=== PATIENT | male | born 1980 ===

== ENCOUNTER 2022-01-01 12:55 | Day surgery (SDC) | payer BC ==
[2022-01-01] MEDS ORDERED: NEXIUM 20MG20 MG PO (13:16)
--- NOTE | 2022-01-01 13:20 | NUR ---
Patient to room 350, direct admit from home. Patient ambulated independently with . A&Ox4. VSS. Reports pain 1/10 "tolerable" in abdomen. Nurse oriented the patient to location, room and call light. Patient in bed, call light within reach
[2022-01-01 13:25] VITALS: BP 147/82; PULSE 102; TEMP 99.4
[2022-01-01] MEDS ORDERED: FLOMAX 0.40.4 MG/CAP PO (14:05)
[2022-01-01] MEDS ORDERED: PYRIDIUM 100MG100 MG PO (14:06)
[2022-01-01] MEDS ORDERED: NORCO 325 MG-51 TAB PO (14:06)
[2022-01-01 15:45] VITALS: BP 124/80; PULSE 85; TEMP 97.9
--- NOTE | 2022-01-01 15:45 | NUR ---
Patient to room 322 from the PACU. already in the room. A&Ox4. VSS. IV CDI, fluids by gravity. Denies pain and discomfort. Post op VS monitored. Call light within reach.
[2022-01-01 15:59] VITALS: BP 129/88; PULSE 79
--- NOTE | 2022-01-01 17:26 | NUR ---
Discharge paperwork reviewed with the patient. Patient verbalized an understanding to follow doctors orders. IV removed, tip intact. Patient ambulated independently to the ED entrance to awaiting vehicle. No further needs expressed
[2022-01-01 18:34] VITALS: BP 118/78; PULSE 87; TEMP 98.8
== END 2022-01-01 17:26 | disposition home or self-care (01) ==
LOC: SDCO 12:55 → SURG 13:04 → SDCO 17:26
DX: N20.1 Calculus of ureter (principal); F17.290 Nicotine dependence, other tobacco product, uncomplicated; Z86.16 Personal history of COVID-19
CPT/HCPCS: OP; C1758; C1769; C2617; J0690; J1100; J1885; J2405; J2704; J3010; Q9967